=== PATIENT | female | born 1970 | race Hispanic/Latino ===

== ENCOUNTER 2017-03-11 10:04 | Emergency (ER) | payer BC ==
[2017-03-11 10:35] VITALS: BP 130/102; PULSE 82; RESP 16; TEMP 98.2
[2017-03-11] MEDS ORDERED: Albuterol-Ipratrop 3 mg / 0.5 (3 ml) UD INH STA (10:36)
[2017-03-11] MEDS ORDERED: Albuterol-Ipratrop 3 mg / 0.5 (3 ml) UD ONE (10:46)
--- NOTE | 2017-03-11 10:48 | ED PDOC ---
HPI: SOB/CHF/COPD Time Seen by Provider: 03/11/17 10:21 Chief Complaint (Nursing): Shortness Of Breath Chief Complaint (Provider): cough, SOB, malaise History Per: Patient History/Exam Limitations: no limitations Onset/Duration Of Symptoms: Days (aprox 1 week) Current Symptoms Are (Timing): Still Present Initiating Event: Upper Respiratory Illness Quality: Tightness Exacerbating Factor(s): Exertion, Coughing Current Respiratory Medications: See Home Med List Severity: Moderate Associated Symptoms: Chills, Productive Cough, Dizziness. denies: Leg/Calf Pain Additional Complaint(s): 46yo female presents c/o cough/congestion, malaise and SOB now worsening over last 3 days but present up to a week. Saw PMD [facility] saturday placed on levaquin told has walking pneumonia. ?flu positive but unsure. No tamiflu Rx. Denies hemoptysis, syncope, rash or neck pain. Does note fatigue, headache and body aches. Past Medical History Reviewed: Historical Data, Nursing Documentation, Vital Signs Vital Signs: Last Vital Signs Temp 98.2 F 03/11/17 10:32 Pulse 82 03/11/17 10:32 Resp 16 03/11/17 10:51 BP 130/102 H 03/11/17 10:32 Pulse Ox 100 03/11/17 10:51 - Medical History PMH: No Chronic Diseases - Family History Family History: States: Unknown Family Hx - Living Arrangements Living Arrangements: With Family - Social History Current smoker - smoking cessation education provided: No - Home Medications Home Medications: Ambulatory Orders Medication Instructions Recorded Albuterol 0.083% [Albuterol 0.083% 2.5 mg IH Q4 PRN #20 neb 03/11/17 Inhal Chacha (2.5 mg/3 ml) UD] Ibuprofen [Motrin Tab] 600 mg PO Q6 PRN #15 tab 03/11/17 Prednisone 50 mg PO DAILY #4 tab 03/11/17 - Allergies Allergies/Adverse Reactions: Allergies Allergy/AdvReac Type Severity Reaction Status Date / Time No Known Allergies Allergy Verified 03/11/17 10:32 Review of Systems Constitutional: Positive for: Fever, Chills, Weakness, Malaise ENT: Positive for: Throat Pain. Negative for: Throat Swelling Cardiovascular: Negative for: Orthopnea Respiratory: Positive for: Shortness of Breath, Sputum Gastrointestinal: Negative for: Vomiting, Abdominal Pain Genitourinary Female: Negative for: Dysuria, Frequency Musculoskeletal: Positive for: Other (body aches). Negative for: Neck Pain, Shoulder Pain Skin: Negative for: Rash, Lesions, Jaundice Neurological: Positive for: Headache, Dizziness. Negative for: Numbness Psych: Negative for: Suicidal ideation Physical Exam - Reviewed Nursing Documentation Reviewed: Yes Vital Signs Reviewed: Yes - Physical Exam Appears: Positive for: Well, Non-toxic, No Acute Distress Head Exam: Positive for: ATRAUMATIC, NORMAL INSPECTION, NORMOCEPHALIC Skin: Positive for: Normal Color, Warm, DRY Eye Exam: Positive for: EOMI, Normal appearance, PERRL ENT: Positive for: Normal ENT Inspection Neck: Positive for: Normal, Painless ROM, Supple, Trachea Midline Cardiovascular/Chest: Positive for: Regular Rate, Rhythm Respiratory: Positive for: Rhonchi, Wheezing. Negative for: Respiratory Distress Gastrointestinal/Abdominal: Negative for: Tenderness Back: Negative for: Decreased ROM Extremity: Positive for: Normal ROM. Negative for: Tenderness, Swelling Neurologic/Psych: Positive for: Alert, Oriented. Negative for: Motor/Sensory Deficits - ECG O2 Sat by Pulse Oximetry: 99 Medical Decision Making Medical Decision Making: workup for flu like symptoms/ URI/ r/o pneumonia Disposition - Clinical Impression Clinical Impression: Bronchitis - Patient ED Disposition Is Patient to be Admitted: No Counseled Patient/Family Regarding: Studies Performed, Diagnosis, Need For Followup, Rx Given - Disposition Disposition: Routine/Home Disposition Time: 11:50 Condition: STABLE Additional Instructions: Take medications as directed. Return to ER for any worse or new symptoms.\ Prescriptions: Albuterol 0.083% [Albuterol 0.083% Inhal Chacha (2.5 mg/3 ml) UD] 2.5 mg IH Q4 PRN #20 neb PRN Reason: Wheezing Ibuprofen [Motrin Tab] 600 mg PO Q6 PRN #15 tab PRN Reason: Pain, Moderate (4-7) Prednisone 50 mg PO DAILY #4 tab Instructions: Acute Bronchitis (ED), How to Use a Nebulizer (ED), Bronchospasm (ED) Forms: [employer] (Nepalese)
--- NOTE | 2017-03-11 12:34 | RAD ---
HISTORY: Cough COMPARISON: 03/04/2008. TECHNIQUE: Chest PA and lateral FINDINGS: LUNGS: No active pulmonary disease. PLEURA: No significant pleural effusion identified. No pneumothorax apparent. CARDIOVASCULAR: Normal. OSSEOUS STRUCTURES: No significant abnormalities. VISUALIZED UPPER ABDOMEN: Normal. OTHER FINDINGS: None. IMPRESSION: No active disease. No significant interval change compared to the prior examination(s).
[2017-03-18 12:41] VITALS: O2SAT 99
== END 2017-03-11 12:11 | disposition home or self-care (01) ==
LOC: H.ER 10:04
DX: J40 Bronchitis, not specified as acute or chronic (principal); J44.9 Chronic obstructive pulmonary disease, unspecified
CPT/HCPCS: 71046; 81025; 87804; 94640; 96372; 99282; J1100